=== PATIENT | male | born 1965 | race Caucasian/White ===

== ENCOUNTER → 2016-07-31 | Outpatient (CLI) | payer BC, OTHER ==
[2016-07-31 16:00] LABS: MEAN CORPUSCULAR HEMOGLOBIN 29.3 PG (26.0-34.0); MEAN CORPUSCULAR HGB CONC 34.2 g/dL (31.0-37.0); MEAN CORPUSCULAR VOLUME 86 FL (80-100); PLATELET COUNT 211 10^3uL (150-450)
[2016-07-31 16:18] LABS: WHITE BLOOD COUNT 39.11 10^3uL (4.0-11.0)
[2016-07-31 16:41] LABS: BAND NEUTROPHILS % 0 % (0-6); EOSINOPHILS % 0 % (0-4); LYMPHOCYTES # 31.7 #; MONOCYTES # 0.4 #; MONOCYTES % 1 % (3-11); SEGMENTED NEUTROPHILS % 18 % (51-67); SMUDGE CELLS 2+; TOTAL CELLS COUNTED 100
[2016-07-31 16:42] LABS: RBC MORPH NORMAL (NORMAL)
== END ==
LOC: LAB 15:42
PROVIDERS: ATTEND Internal Medicine Hematology & Oncology
DX: C91.10 Chronic lymphocytic leukemia of B-cell type not having achieved remission (principal)
CPT/HCPCS: 36415; 85007; 85027